=== PATIENT | male | born 1990 | race Caucasian/White ===

== ENCOUNTER 2023-11-22 08:32 | Emergency (ER) | payer OTHER, SELFPAY ==
[2023-11-22 08:44] VITALS: PULSE 66; RESP 15; O2SAT 100
[2023-11-22 08:46] VITALS: BP 130/92; PULSE 54; RESP 17; O2SAT 100
--- NOTE | 2023-11-22 08:48 | DI.RAD.S_ITS ---
PROCEDURE: XR CHEST 1V INDICATIONS: chest pain TECHNIQUE: One view of the chest was acquired. COMPARISON: None. FINDINGS: Surgical changes and devices: None. Lungs and pleura: Lungs are clear. No pleural effusions or pneumothorax. Mediastinum: Mediastinal contours appear normal. Heart size is normal. Bones and chest wall: No suspicious bony lesions. Overlying soft tissues appear unremarkable. IMPRESSION: No acute cardiopulmonary abnormality is seen. Approved by: Rashad Hamilton M.D. on 11/22/2023 at 9:05
[2023-11-22 08:51] VITALS: BP 130/92; PULSE 64; RESP 18; TEMP 36.6; O2SAT 100
[2023-11-22 08:56] LABS: Add Manual Diff / Slide Review NO; Basophils Absolute Auto 0 /uL (0-100); Basophils Percent Auto 0.4 % (0-2); Eosinophils Absolute Auto 300 /uL (0-450); Hemoglobin 14.7 g/dL (13.5-17.5); Lymphocytes Absolute Auto 1900 /uL (1100-4500); Lymphocytes Percent Auto 17.7 % (25-40); Mean Corpuscular HGB Conc 33.4 % (30-36); Mean Corpuscular Hemoglobin 28.3 PG (26-34); Mean Corpuscular Volume 84.7 fL (80-100); Monocytes Absolute Auto 900 /uL (0-900); Monocytes Percent Auto 8.6 % (3-14); Neutrophils Absolute Auto 7700 /uL (1500-7000); Neutrophils Percent Auto 70.3 % (50-75); Platelet Count 396 X10^3/uL (150-400); Red Cell Distribution Width 13.2 % (11.6-14.8)
[2023-11-22] MEDS: MAG HYDROX/ALUMINUM/SIMETH SUS 20 ML, LIDOCAINE VISCOUS 2% 15 ML PO (08:57)
--- NOTE | 2023-11-22 08:58 | ED_ITS ---
HPI - Chest Pain General Chief Complaint: Chest Pain Stated Complaint: chest pains Time Seen by Provider: 11/22/23 08:37 Source: patient Mode of arrival: Ambulatory Limitations: no limitations History of Present Illness HPI narrative: Patient healthy 33-year-old male history of ADHD presenting today with chest pain. He reports that about 1:00 a.m. confirm asleep he feels it sharp and stabbing sometimes burning in his throat. He denies any radiation of pain. He is from [place] and recently traveled from [facility] with his family here. No significant cough fever shortness of breath or sore throat. He reports that his and family are sick but he does not feel too bad. Denies any abdominal pain had occasional nausea no vomiting. Took ibuprofen prior to arrival. Denies any sort of change in position Related Data Allergies Allergy/AdvReac Type Severity Reaction Status Date / Time cat dander Allergy Sneezing Verified 11/22/23 09:13 Patient History Social History Smoking Status: Current some day smoker Smoking Status: Current some day smoker alcohol intake frequency: a few times a week Substance Use Type: marijuana Exam Initial Vital Signs Initial Vital Signs: Vital Signs Pulse Rate 66 11/22/23 08:44 Respiratory Rate 15 11/22/23 08:44 Pulse Oximetry 100 11/22/23 08:44 GENERAL: Alert pleasant 33-year-old male and in no acute distress. HEENT: Head atraumatic,EOMI, pupils reactive, face symmetric, moist mucous membranes CARDIOVASCULAR: Regular rate and rhythm without murmurs, rubs or gallops. RESPIRATORY: Breath sounds equal bilaterally, no wheezes rales or rhonchi. ABDOMEN: Soft, nontender. Normoactive bowel sounds all 4 quadrants. No guarding or rebound. EXTREMITIES: Normal range of motion, no clubbing or edema. Neurovascularly intact NEUROLOGICAL: Alert and oriented x4.Normal gait and speech. SKIN: Warm, dry, no laceration, no petechiae, no rashes or lesions. Scores HEART Score Heart Score history: Slightly Suspicious Heart Score EKG: Normal Heart Score Age: < 45 years old Heart Score risk factors: No known risk factors Heart Score troponin: < or = to normal limit Heart Score Total: 0 Course Orders Ordered: ED Orders 11/22/23 08:47 D Dimer Stat 11/22/23 08:48 XR chest 1V Stat Complete Blood Count AUTO DIFF Stat Comprehensive Metabolic Panel Stat Lipase Stat Troponin & CK Cardiac Panel Stat EKG-12 Lead Stat Discontinued Medications Al Hydrox/Mg Hydrox/Simethicone 20 ml/ Lidocaine HCl 15 ml 0 ml PO NOW ONE Stop: 11/22/23 08:48 Last Admin: 11/22/23 08:57 Dose: 35 ml Documented By: SOLEDAD Vital Signs Vital signs: Vital Signs - 8 hr 11/22/23 08:44 11/22/23 08:46 11/22/23 08:46 Temperature Pulse Rate 66 54 L Respiratory Rate 15 17 Blood Pressure 130/92 H Pulse Oximetry 100 100 Oxygen Delivery Method 11/22/23 08:51 Temperature 97.8 F Pulse Rate 64 Respiratory Rate 18 Blood Pressure 130/92 H Pulse Oximetry 100 Oxygen Delivery Method Room Air MDM - Chest Pain Lab Data 11/22/23 08:45 11/22/23 08:45 Labs: Lab Results 11/22/23 Range/Units 08:45 WBC 11.0 (4.5-11.0) X10^3/uL RBC 5.20 (4.5-5.9) X10^6/uL Hgb 14.7 (13.5-17.5) g/dL Hct 44.0 (41-53) % MCV 84.7 (80-100) fL MCH 28.3 (26-34) PG MCHC 33.4 (30-36) % RDW 13.2 (11.6-14.8) % Plt Count 396 (150-400) X10^3/uL Neut % (Auto) 70.3 (50-75) % Lymph % (Auto) 17.7 L (25-40) % [place] % (Auto) 8.6 (3-14) % Eos % (Auto) 3.0 (2-4) % Baso % (Auto) 0.4 (0-2) % Neut # (Auto) 7700 H (7556-2037) /uL Lymph # (Auto) 1900 (1914-6352) /uL [place] # (Auto) 900 (0-900) /uL Eos # (Auto) 300 (0-450) /uL Baso # (Auto) 0 (0-100) /uL D-Dimer 814 H (<500) ng/ml Sodium 136 L (137-145) mmol/L Potassium 4.5 (3.4-5.1) mmol/L Chloride 103 (98-107) mmol/L Carbon Dioxide 31 (22-32) mmol/L BUN 15 (9-20) mg/dL Creatinine 0.73 (0.66-1.25) mg/dL Estimated GFR > 60 (>60) mL/min BUN/Creatinine Ratio 20.5 (6-22) Glucose 90 (70-100) mg/dL Calcium 9.4 (8.4-10.2) mg/dL Total Bilirubin 0.5 (0.2-1.3) mg/dL AST 29 (17-59) IU/L ALT 18 (<50) IU/L Alkaline Phosphatase 74 (38-126) U/L Total Creatine Kinase 71 (55-170) U/L Troponin I < 0.012 (0.01-0.034) ng/mL Total Protein 7.3 (6.3-8.2) g/dL Albumin 4.6 (3.5-5.0) g/dL Globulin 2.7 (1.7-4.1) g/dL Albumin/Globulin Ratio 1.7 (1.0-2.8) Lipase 51 (23-300) U/L Imaging Data Chest x-ray: Radiologist's Impression: PROCEDURE: XR CHEST 1V INDICATIONS: chest pain TECHNIQUE: One view of the chest was acquired. COMPARISON: None. FINDINGS: Surgical changes and devices: None. Lungs and pleura: Lungs are clear. No pleural effusions or pneumothorax. Mediastinum: Mediastinal contours appear normal. Heart size is normal. Bones and chest wall: No suspicious bony lesions. Overlying soft tissues appear unremarkable. IMPRESSION: No acute cardiopulmonary abnormality is seen. Approved by: Rashad Hamilton M.D. on 11/22/2023 at 9:05 ECG Data Attestation: I personally reviewed and interpreted this ECG as follows: Prior ECG tracings: not available for review Interpretation: Normal sinus rhythm rate 50 3p NE interval 124 QRS [address] changes no T-wave inversions no priors to compare MDM Narrative Medical decision making narrative: Patient is a healthy 33-year-old male who presents today with atypical chest pain. Reports sharp stabbing burning like chest pain. Recently traveled from [facility] couple of days ago. No infectious symptoms. Blood work has been reviewed overall reassuring D-dimer 814 troponin is negative, no leukocytosis Chest x-ray is reviewed no acute cardiopulmonary process no pneumothorax Differential diagnosis: As reflux acute coronary syndrome pericarditis pericardial fusion pulmonary embolism pneumonia pneumothorax At this time patient was given a GI cocktail here in the ED. low risk heart score unlikely to be acute coronary syndrome. Your score has also excluded a pulmonary embolism. I suspect more of an acid reflux. YEARS Algorithm for Pulmonary Embolism (PE) from [employer] on 11/22/2023 All calculations should be rechecked by clinician prior to use RESULT SUMMARY: PE excluded YEARS algorithm rules out PE (0.43% with symptomatic VTE during 3-month follow- up) INPUTS: patient ?> 0 = No Clinical signs of DVT ?> 0 = No Hemoptysis ?> 0 = No PE most likely diagnosis ?> 0 = No D-dimer >=,000 ng/mL ?> 0 = No Discharge Plan Departure Patient Disposition: Home Clinical Impression: Atypical chest pain, GERD (gastroesophageal reflux disease) Instructions: DI for Gastroesophageal Reflux Disease (GERD) Activity Restrictions/Additional Instructions: *You have been diagnosed with atypical chest pain, acid reflux *What to do: At this time I suspect you have some mild acid reflux. *Continue to take medications as directed Ibuprofen 600 mg every 6 hours if needed for wirw-ce-brutfsad pain Omeprazole 20 mg once a day if needed for acid reflux (found [id number]) *Follow up with your primary care provider in 2-3 days or call [phone] *Return to ER if you should have increasing pain chest pain shortness of breath [or] any new, worsening or concerning symptoms Stand Alone Forms: Patient Portal/API
[2023-11-22 09:03] VITALS: PULSE 55; RESP 19; O2SAT 91
[2023-11-22 09:05] VITALS: BP 124/84; PULSE 54; RESP 19; O2SAT 100
[2023-11-22 09:05] LABS: D Dimer 814 ng/ml (<500)
[2023-11-22 09:08] LABS: Alanine Aminotransferase 18 IU/L (<50); Albumin 4.6 g/dL (3.5-5.0); Albumin Globulin Ratio 1.7 (1.0-2.8); Alkaline Phosphatase 74 U/L (38-126); Aspartate Aminotransferase 29 IU/L (17-59); BUN Creatinine Ratio 20.5 (6-22); Bilirubin Total 0.5 mg/dL (0.2-1.3); Blood Urea Nitrogen 15 mg/dL (9-20); Calcium 9.4 mg/dL (8.4-10.2); Carbon Dioxide 31 mmol/L (22-32); Chloride 103 mmol/L (98-107); Creatine Kinase 71 U/L (55-170); Estimated Glomerular Filt Rate > 60 mL/min (>60); Globulin 2.7 g/dL (1.7-4.1); Glucose 90 mg/dL (70-100); HEMOLYSIS < 15 (0-50); Lipase 51 U/L (23-300); Potassium 4.5 mmol/L (3.4-5.1); Sodium 136 mmol/L (137-145); Total Protein 7.3 g/dL (6.3-8.2)
[2023-11-22 09:19] LABS: Troponin I < 0.012 ng/mL (0.01-0.034)
[2023-11-22 09:30] VITALS: BP 115/78; PULSE 56; RESP 14; O2SAT 99
== END 2023-11-22 09:37 | disposition home or self-care (01) ==
PROVIDERS: Emergency Provider Emergency Medicine
DX: R07.89 Other chest pain (principal); K21.9 Gastro-esophageal reflux disease without esophagitis
CPT/HCPCS: 36415; 71045; 80053; 82550; 83690; 84484; 85025; 85379; 93005; 99284